=== PATIENT | female | born 1970 | race Caucasian/White ===

== ENCOUNTER 2021-08-22 07:34 | Day surgery (SDC) | payer MEDICAID ==
[~2021-08-22] VITALS: Ht 154.9 cm; Wt 70.3 kg
[2021-08-22] MEDS ORDERED: MEPERIDINE 100 MG INJ. 100 MG/ML VIAL ONE (08:15)
[2021-08-22] MEDS ORDERED: MIDAZOLAM HCL 5 MG/5 ML VIAL ONE (08:16)
[2021-08-22 10:10] VITALS: BP_SYST 116
== END 2021-08-22 10:00 | disposition home or self-care (01) ==
LOC: SDS 07:34 → SMU 07:35 → SDS 10:00
PROVIDERS: ATTEND Internal Medicine Gastroenterology
DX: K62.5 Hemorrhage of anus and rectum (principal); R19.4 Change in bowel habit; K64.9 Unspecified hemorrhoids; Z79.899 Other long term (current) drug therapy; Z20.822 Contact with and (suspected) exposure to COVID-19
CPT/HCPCS: 36415 ×2; 45378; 87426; 99152; 99153; G0378; J2175; J2250; U0003; 87635-QW